=== PATIENT | male | born 1970 | race Caucasian/White ===

== ENCOUNTER 2016-11-20 08:59 | Outpatient (CLI) | payer OTHER ==
[2016-11-20 09:19] LABS: BASOPHILS % (AUTO) 0.4 %; EOSINOPHILS # (AUTO) 0.2 10^3/uL (0.0-0.7); EOSINOPHILS % (AUTO) 4.5 %; HCT - HEMATOCRIT 39.1 % (42.0-52.0); HGB - HEMOGLOBIN 13.7 g/dL (14.0-18.0); LYMPHOCYTES # (AUTO) 1.8 10^3/uL (1.5-3.5); LYMPHOCYTES % (AUTO) 36.8 %; MEAN CORPUSCULAR HEMOGLOBIN 31.4 pg (27.0-31.0); MEAN CORPUSCULAR HGB CONC 34.9 g/dL (32.0-36.0); MEAN PLATELET VOLUME 8.2 fL (7.4-11.4); MONOCYTES # (AUTO) 0.5 10^3/uL (0.0-1.0); MONOCYTES % (AUTO) 10.7 %; NEUTROPHILS # (AUTO) 2.3 10^3/uL (1.5-6.6); NEUTROPHILS % (AUTO) 47.6 %; RED BLOOD COUNT 4.35 10^6/uL (4.70-6.10); RED CELL DISTRIBUTION WIDTH 12.3 % (12.0-15.0); UNCORRECTED WHITE BLOOD COUNT 4.9 x10^3/uL; WHITE BLOOD COUNT 4.9 x10^3/uL (4.8-10.8)
[2016-11-20 09:35] LABS: ALBUMIN/GLOBULIN RATIO 1.3 (1.0-2.2); BILIRUBIN,TOTAL 1.1 mg/dL (0.2-1.0); BUN - BLOOD UREA NITROGEN 12 mg/dL (6-20); CALCIUM 9.3 mg/dL (8.5-10.3); CARBON DIOXIDE - CO2 25 mmol/L (21-32); CHLORIDE 106 mmol/L (101-111); CHOL/HDL RATIO 3.9 (<5.0); CHOLESTEROL 145 mg/dL; CREATININE 0.7 mg/dL (0.6-1.2); GFR - MDRD 120 (>89); GLUCOSE 96 mg/dL (70-100); HDL CHOLESTEROL 37 mg/dL; LDL/HDL RATIO 2.1 (<3.6); POTASSIUM 3.9 mmol/L (3.5-5.0); SODIUM 139 mmol/L (135-145); TOTAL PROTEIN 7.9 g/dL (6.7-8.2); TRIGLYCERIDES 160 mg/dL; VLDL CHOLESTEROL 32 mg/dL
== END 2016-11-20 09:00 | disposition home or self-care (01) ==
LOC: LAB 08:59
PROVIDERS: ATTEND Physician Assistant
DX: E78.5 Hyperlipidemia, unspecified (principal); D64.9 Anemia, unspecified
CPT/HCPCS: 80053; 80061; 85025

== ENCOUNTER 2017-06-30 15:13 | Outpatient (CLI) | payer OTHER | END 2017-06-30 15:14 | disposition home or self-care (01) | LOC: LAB.F 15:13 | PROVIDERS: ATTEND Physician Assistant | DX: D64.9 Anemia, unspecified (principal); I10 Essential (primary) hypertension ==

== ENCOUNTER 2017-07-16 07:52 | Outpatient (CLI) | payer OTHER ==
[2017-07-16 08:11] LABS: BASOPHILS % (AUTO) 0.3 %; EOSINOPHILS # (AUTO) 0.3 10^3/uL (0.0-0.7); EOSINOPHILS % (AUTO) 5.7 %; HGB - HEMOGLOBIN 13.7 g/dL (14.0-18.0); LYMPHOCYTES # (AUTO) 1.6 10^3/uL (1.5-3.5); LYMPHOCYTES % (AUTO) 29.9 %; MEAN CORPUSCULAR HEMOGLOBIN 31.4 pg (27.0-31.0); MEAN CORPUSCULAR HGB CONC 34.4 g/dL (32.0-36.0); MEAN CORPUSCULAR VOLUME 91.2 fL (80.0-94.0); MEAN PLATELET VOLUME 7.7 fL (7.4-11.4); MONOCYTES # (AUTO) 0.6 10^3/uL (0.0-1.0); MONOCYTES % (AUTO) 10.7 %; NEUTROPHILS # (AUTO) 2.8 10^3/uL (1.5-6.6); NEUTROPHILS % (AUTO) 53.4 %; PLT - PLATELET COUNT 204 10^3/uL (130-450); RED BLOOD COUNT 4.36 10^6/uL (4.70-6.10); WHITE BLOOD COUNT 5.2 x10^3/uL (4.8-10.8)
== END 2017-07-16 07:53 | disposition home or self-care (01) ==
LOC: LAB 07:52
PROVIDERS: ATTEND Physician Assistant
DX: D64.9 Anemia, unspecified (principal); I10 Essential (primary) hypertension
CPT/HCPCS: 36415; 82465; 85025

== ENCOUNTER 2018-04-19 13:30 | Emergency (ER) | payer OTHER ==
[2018-04-19 14:20] LABS: BASOPHILS % (AUTO) 0.2 %; EOSINOPHILS # (AUTO) 0.2 10^3/uL (0.0-0.7); EOSINOPHILS % (AUTO) 1.4 %; HGB - HEMOGLOBIN 15.2 g/dL (14.0-18.0); LYMPHOCYTES # (AUTO) 0.9 10^3/uL (1.5-3.5); LYMPHOCYTES % (AUTO) 7.1 %; MEAN CORPUSCULAR HEMOGLOBIN 31.1 pg (27.0-31.0); MEAN CORPUSCULAR HGB CONC 35.2 g/dL (32.0-36.0); MEAN CORPUSCULAR VOLUME 88.3 fL (80.0-94.0); MEAN PLATELET VOLUME 8.1 fL (7.4-11.4); MONOCYTES % (AUTO) 7.9 %; NEUTROPHILS # (AUTO) 10.7 10^3/uL (1.5-6.6); NEUTROPHILS % (AUTO) 83.4 %; PLT - PLATELET COUNT 202 10^3/uL (130-450); RED BLOOD COUNT 4.89 10^6/uL (4.70-6.10); WHITE BLOOD COUNT 12.8 x10^3/uL (4.8-10.8)
[2018-04-19 14:56] LABS: ALBUMIN 4.3 g/dL (3.2-5.5); ALBUMIN/GLOBULIN RATIO 1.2 (1.0-2.2); BILIRUBIN,TOTAL 4.4 mg/dL (0.2-1.0); CALCIUM 9.4 mg/dL (8.5-10.3); CREATININE 0.9 mg/dL (0.6-1.2)
[2018-04-19] MEDS ORDERED: ONDANSETRON 4 MG/2 ML VIAL IVP STA (15:21)
--- NOTE | 2018-04-19 15:23 | ED Physician Documentation ---
PD HPI ABD PAIN - Stated complaint Stated Complaint: UPPER ABD/BACK PX - Chief complaint Chief Complaint: Abd Pain - History obtained from History obtained from: Patient - History of Present Illness Timing - onset: Last night (This is a 47-year-old gentleman with history of hypertension who has had occasional milder episodes of epigastric pain in the Past. Starting last night he had sudden onset epigastric pain radiating to the mid back associated with vomiting and diarrhea. It is more severe than prior episodes. He has no history of abdominal surgeries.) Review of Systems Ten Systems: 10 systems reviewed and negative Constitutional: reports: Reviewed and negative Throat: reports: Reviewed and negative Cardiac: reports: Reviewed and negative Respiratory: reports: Reviewed and negative PD PAST MEDICAL HISTORY - Past Medical History Cardiovascular: Hypertension Respiratory: Other Endocrine/Autoimmune: None GI: Ulcerative colitis : None HEENT: Other Psych: None Musculoskeletal: Osteoarthritis, Other Derm: None - Past Surgical History General: Colonoscopy Ortho: Shoulder arthroplasty - Present Medications Home Medications: Ambulatory Orders Medication Instructions Recorded Confirmed Atenolol 1 tab PO BID 10/19/13 04/19/18 Lisinopril 1 tab PO DAILY 10/19/13 04/19/18 - Allergies Allergies/Adverse Reactions: Allergies Allergy/AdvReac Type Severity Reaction Status Date / Time acetaminophen [From Percocet] Allergy Itching Verified 04/19/18 13:52 oxycodone HCl * Allergy Itching Verified 04/19/18 13:52 [From Percocet] PD ED PE NORMAL - Vitals Vital signs reviewed: Yes - General General: Alert and oriented X 3, No acute distress - HEENT HEENT: PERRL, EOMI - Neck Neck: Supple, no meningeal sign, No bony TTP - Cardiac Cardiac: RRR, No murmur - Respiratory Respiratory: No respiratory distress, Clear bilaterally - Abdomen Abdomen: Normal bowel sounds, Soft, Non tender - Back Back: No CVA TTP, No spinal TTP - Derm Derm: Normal color, Warm and dry - Extremities Extremities: No edema, No calf tenderness / cord - Neuro Neuro: Alert and oriented X 3, Normal speech Results - Vitals Vitals: Vital Signs - 24 hr 04/19/18 04/19/18 04/19/18 13:49 15:05 17:54 Temperature 36.0 C L 36.8 C 36.4 C L Heart Rate 65 61 64 Respiratory 14 20 20 Rate Blood Pressure 138/94 H 143/99 H 154/107 H O2 Saturation 100 100 100 04/19/18 19:54 Temperature 36.4 C L Heart Rate 57 L Respiratory 16 Rate Blood Pressure 154/104 H O2 Saturation 98 Oxygen O2 Source Room air - Labs Labs: Laboratory Tests 04/19/18 04/19/18 14:15 14:15 WBC 12.8 H RBC 4.89 Hgb 15.2 Hct 43.2 MCV 88.3 MCH 31.1 H MCHC 35.2 RDW 13.0 Plt Count 202 MPV 8.1 Neut # (Auto) 10.7 H Lymph # (Auto) 0.9 L [place] # (Auto) 1.0 Eos # (Auto) 0.2 Baso # (Auto) 0.0 Absolute Nucleated RBC 0.00 Nucleated RBC % 0.0 Sodium 136 Potassium 4.5 Chloride 102 Carbon Dioxide 27 Anion Gap 7.0 BUN 17 Creatinine 0.9 Estimated GFR (MDRD) 90 Glucose 114 H Calcium 9.4 Total Bilirubin 4.4 H AST 293 H ALT 308 H Alkaline Phosphatase 89 Total Protein 8.0 Albumin 4.3 Globulin 3.7 Albumin/Globulin Ratio 1.2 Lipase 1695 H - Rads (name of study) CT ABd Radiology: EMP read contemporaneously (Cholelithiasis with gallbladder wall thickening and dilation of the cystic duct, there is a small focus of density within the proximal common bile duct adjacent to the cystic duct which could represent a stone. There is no common bile duct or intrahepatic duct dilatation. There is evidence of acute pancreatitis.) PD MEDICAL DECISION MAKING - ED course ED course: This is a 47-year-old gentleman with epigastric pain radiating to the back of a little less than a days duration. Lab work demonstrates evidence of likely gallstone pancreatitis versus other biliary obstruction causing pancreatitis. I spoke with the radiologist who recommended MRCP as the best initial study of choice, however we were unable to get an MRCP in a timely manner and he said that CT of the abdomen with IV contrast is the best alternative. Case was discussed after results of the CT with Dr. Osborn, the on-call surg abril who recommended transfer to a facility capable of ERCP. Case discussed with Dr. Almaraz, on-call GI in [place], defers to the hospitalist therefore admission. Agrees with [facility] in the interim. Accepted by Dr. Torres, the surgeon Swain at 8:30 PM and cobras were completed. He is stable for transport. He needs transport to a higher level of care for potential ERCP intervention. Departure - Departure Disposition: 02 Transfer Acute Care Hosp Clinical Impression: Gallstone pancreatitis Condition: Serious
[2018-04-19] MEDS: HYDROmorphone 1 MG/ML CARPUJECT IVP STA ×3 (15:43→15:46)
[2018-04-19] MEDS ORDERED: IOVERSOL 320 100 ML VIAL IVP ONE ×2 (16:10→20:21)
[2018-04-19] MEDS ORDERED: KETOROLAC 30 MG/ML VIAL IVP STA (17:34)
--- NOTE | 2018-04-19 17:46 | CT Report ---
Reason: IV only, pancreatitis, ?choledocholithiasis Procedure Date: 04/19/2018 Accession Number: [id number] / [id number] Procedure: CT - ABDOMEN W CPT Code: FULL RESULT: EXAM: CT ABDOMEN WITHOUT AND WITH CONTRAST EXAM DATE: 04/19/2018 04:53 PM. CLINICAL HISTORY: IV only, pancreatitis, ?choledocholithiasis. COMPARISONS: None. TECHNIQUE: Multiphasic CT of abdomen (pancreas) without and with IV contrast: opti 320 100mL. Enteric contrast: None. Reconstructions: Coronal and sagittal. In accordance with CT protocol optimization, one or more of the following dose reduction techniques were utilized for this exam: automated exposure control, adjustment of mA and/or KV based on patient size, or use of iterative reconstructive technique. FINDINGS: Lung Bases: Unremarkable. Pancreas: Mild peripancreatic inflammation, greatest adjacent to the body and tail. Pancreatic parenchyma enhances homogeneously. No fluid collection. No mass. Other Solid Organs: Unremarkable. Gallbladder/Biliary System: Cholelithiasis. Mild gallbladder wall thickening with mild adjacent inflammation. Tubular dilated structure adjacent to the gallbladder is most likely the cystic duct. Small amount of hyperdensity is within the proximal common bile duct adjacent to the cystic duct origin (image 30 series 11). No common bile duct dilation. No intrahepatic bile duct dilation. Bowel: Small hiatal hernia. The visualized bowel is unremarkable. No free fluid or free air. Mother from a gastrohepatic lymph node measures 10 mm in short axis and could be reactive. Prominent but not pathologically enlarged periportal lymph nodes as well. Bones: Unremarkable. IMPRESSION: 1. Cholelithiasis with gallbladder wall thickening and mild adjacent inflammation as well as dilation of the cystic duct, suspicious for acute cholelithiasis. Small focus of high density within the proximal common bile duct adjacent to the cystic duct insertion could represent a stone. No common bile duct or intrahepatic bile duct dilation. 2. Acute pancreatitis. Prominent gastrohepatic and periportal lymph nodes may be reactive. RADIA
[2018-04-19] MEDS ORDERED: AMPICILLIN/SULBACTAM 3 GM in SODIUM CHLORIDE 0.9% MINIBAG 100 ML IV STA (18:29)
[2018-04-19] MEDS ORDERED: HYDROmorphone 1 MG/ML CARPUJECT IVP STA (18:59)
[2018-04-19] MEDS ORDERED: SODIUM CHLORIDE 0.9% 1,000 ML IV ONE (18:59)
[2018-04-19 21:16] VITALS: BP 165/116
[2018-04-19 21:16] LABS: GLUCOSE, URINE (UA) NEGATIVE (NEGATIVE); KETONES,URINE (UA) NEGATIVE (NEGATIVE); LEUKOCYTE ESTERASE, URINE NEGATIVE (NEGATIVE); NITRITE,URINE NEGATIVE (NEGATIVE); OCCULT BLOOD,URINE NEGATIVE (NEGATIVE); PROTEIN,URINE NEGATIVE (NEGATIVE); UROBILINOGEN,URINE 0.2 (NORMAL) E.U./dL (NORMAL)
[2018-04-19 21:20] LABS: BILIRUBIN,URINE SMALL (NEGATIVE); ICTOTEST,URINE POSITIVE
[2018-04-19 21:21] LABS: CLARITY,URINE CLEAR (CLEAR)
== END 2018-04-19 21:05 | disposition short-term general hospital (02) ==
LOC: ED 13:30
DX: K80.80 Other cholelithiasis without obstruction (principal); K85.90 Acute pancreatitis without necrosis or infection, unspecified
CPT/HCPCS: 36415; 74160; 80053; 81001; 81003; 83690; 85025; 87086; 96361; 96365; 96375; 99284

== ENCOUNTER 2018-04-19 21:07 | Outpatient (CLI) | payer OTHER | END 2018-04-19 21:08 | disposition short-term general hospital (02) | LOC: EMS 21:07 | PROVIDERS: ATTEND Surgery | DX: K85.10 Biliary acute pancreatitis without necrosis or infection (principal) | CPT/HCPCS: A0425; A0426 ==

== ENCOUNTER 2018-06-10 13:48 | Outpatient (CLI) | payer OTHER ==
--- NOTE | 2018-06-10 22:00 | XRAY Report ---
Reason: PULMONARY NODULE Procedure Date: 06/10/2018 Accession Number: [id number] / [id number] Procedure: XR - Chest 2 View X-Ray CPT Code: 91542 FULL RESULT: EXAM: CHEST RADIOGRAPHY EXAM DATE: 06/10/2018 02:23 PM. CLINICAL HISTORY: PULMONARY NODULE. COMPARISON: 11/20/2012 2:45 PM RIBS 2 VIEW LT 06/10/2018 2:16 PM . TECHNIQUE: 2 views. FINDINGS: Lungs/Pleura: No pulmonary nodule identified. No evidence of consolidation or pleural effusion. Negative for pneumothorax. Lung volumes are normal. Mediastinum: Heart size is normal. Trachea is midline. Pulmonary vasculature appears normal. Other: None. IMPRESSION: Negative. Clear lungs. No nodule. RADIA
--- NOTE | 2018-06-12 01:00 | XRAY Report ---
Reason: INCIDENTAL FINDING ON PREVIOUS SHOULDER X RAY Procedure Date: 06/10/2018 Accession Number: [id number] / [id number] Procedure: XR - Ribs 2 View LT CPT Code: FULL RESULT: EXAM: LEFT RIB RADIOGRAPHY EXAM DATE: 06/10/2018 02:23 PM. CLINICAL HISTORY: INCIDENTAL FINDING ON PREVIOUS SHOULDER X RAY. COMPARISON: 11/20/2012 2:45 PM CHEST 2 VIEW 06/10/2018 2:16 PM. TECHNIQUE: 2 views. FINDINGS: Mild motion artifact limited. No evidence for acute rib fracture. No rib bone lesion is seen. IMPRESSION: Mild motion artifact limited. No evidence for acute rib fracture. No rib bone lesion is seen. RADIA
== END 2018-06-10 13:49 | disposition home or self-care (01) ==
LOC: DI 13:48
PROVIDERS: ATTEND Internal Medicine
DX: R91.1 Solitary pulmonary nodule (principal)
CPT/HCPCS: 71046

== ENCOUNTER 2019-06-18 08:57 | Outpatient (CLI) | payer OTHER ==
[2019-06-18 09:22] LABS: BASOPHILS % (AUTO) 0.2 %; EOSINOPHILS # (AUTO) 0.3 10^3/uL (0.0-0.7); EOSINOPHILS % (AUTO) 4.6 %; HGB - HEMOGLOBIN 13.2 g/dL (14.0-18.0); LYMPHOCYTES # (AUTO) 1.7 10^3/uL (1.5-3.5); LYMPHOCYTES % (AUTO) 29.4 %; MEAN CORPUSCULAR HEMOGLOBIN 31.4 pg (27.0-31.0); MEAN CORPUSCULAR HGB CONC 35.6 g/dL (32.0-36.0); MEAN CORPUSCULAR VOLUME 88.1 fL (80.0-94.0); MEAN PLATELET VOLUME 8.8 fL (7.4-11.4); MONOCYTES # (AUTO) 0.6 10^3/uL (0.0-1.0); MONOCYTES % (AUTO) 10.8 %; NEUTROPHILS # (AUTO) 3.1 10^3/uL (1.5-6.6); NEUTROPHILS % (AUTO) 54.8 %; PLT - PLATELET COUNT 204 10^3/uL (130-450); RED BLOOD COUNT 4.21 10^6/uL (4.70-6.10); RED CELL DISTRIBUTION WIDTH 13.1 % (12.0-15.0); WHITE BLOOD COUNT 5.6 x10^3/uL (4.8-10.8)
[2019-06-18 09:36] LABS: ALBUMIN 4.4 g/dL (3.2-5.5); ALBUMIN/GLOBULIN RATIO 1.2 (1.0-2.2); BILIRUBIN,TOTAL 0.7 mg/dL (0.2-1.0); CALCIUM 9.1 mg/dL (8.5-10.3); CREATININE 0.8 mg/dL (0.6-1.2); TOTAL PROTEIN 8.2 g/dL (6.7-8.2)
== END 2019-06-18 08:58 | disposition home or self-care (01) ==
LOC: LAB 08:57
PROVIDERS: ATTEND Physician Assistant Medical
DX: I10 Essential (primary) hypertension (principal); Z51.81 Encounter for therapeutic drug level monitoring; Z79.01 Long term (current) use of anticoagulants
CPT/HCPCS: 36415; 80053; 85025

== ENCOUNTER 2019-06-28 07:08 | Outpatient (CLI) | payer OTHER ==
[2019-06-28 09:17] LABS: HB2 TOTAL 13.9 g/dL; HEMOGLOBIN A1C 0.44 g/dL
== END 2019-06-28 07:09 | disposition home or self-care (01) ==
LOC: LAB 07:08
PROVIDERS: ATTEND Physician Assistant Medical
DX: Z83.3 Family history of diabetes mellitus (principal); Z12.5 Encounter for screening for malignant neoplasm of prostate; N52.9 Male erectile dysfunction, unspecified; Z51.81 Encounter for therapeutic drug level monitoring; R53.83 Other fatigue; R53.1 Weakness; Z79.899 Other long term (current) drug therapy
CPT/HCPCS: 36415; 81599; 83036; 84153; 84402; 84403; 84443

== ENCOUNTER 2023-07-15 08:00 | Outpatient (CLI) | payer OTHER ==
--- NOTE | 2023-07-16 11:43 | XRAY Report ---
PROCEDURE: Chest 2V INDICATIONS: WHEEZING TECHNIQUE: 2 views of the chest were acquired. COMPARISON: None. FINDINGS: Surgical changes and devices: None. Lungs and pleura: No pleural effusions or pneumothorax. Lungs are clear. Mediastinum: Mediastinal contours appear normal. Heart size is normal. Bones and chest wall: No suspicious bony lesions. Overlying soft tissues appear unremarkable. Bon y anchors over the right glenohumeral joint. IMPRESSION: No acute cardiopulmonary process. Reviewed by: Ugo Blackwell MD on 07/16/2023 10:42 AM LEROY Approved by: Ugo Blackwell MD on 07/16/2023 10:42 AM LEROY Station ID: [id number]
== END 2023-07-15 23:59 | disposition home or self-care (01) ==
LOC: DI.S 08:00
PROVIDERS: ATTEND Nurse Practitioner
DX: R06.2 Wheezing (principal)